=== PATIENT | male | born 1995 | race Caucasian/White ===

== ENCOUNTER 2017-04-04 11:10 | Emergency (ER) | payer OTHER ==
[~2017-04-04] VITALS: Ht 172.7 cm; Wt 58.2 kg
[~2017-04-04 11:10] MED LIST: RIS1
[2017-04-04 11:22] VITALS: Ht 172.7 cm; Wt 58.2 kg
[2017-04-04] MEDS ORDERED: SULF1TAB31 PO (12:02)
[2017-04-04] MEDS ORDERED: CEPH-443 PO (12:02)
--- NOTE | 2017-04-04 12:07 | ERD ---
ER Documentation Chief Complaint Chief Complaint Pt with R face abcess with puss/bood tinged drainage noted. Tachy HPI 21-year-old male with history of autism and mutism presents with a chief complaints of abscess on the right cheek. Abscess started draining this morning. Denies fever, nausea, vomiting, chills, altered mental status. Has not taken any medications to relieve symptoms. Vaccination status up-to-date. No recent travel. Patient has no other complaints and describes no other associated manifestations. Nursing notes have been reviewed and are consistent with history given. ROS All systems reviewed and are negative except as per history of present illness. Medications Home Meds Active Scripts Cephalexin* (Keflex*) 500 Mg Capsule, 500 MG PO QID for 5 Days, CAP Prov:MENG FREGOSO PA-C 04/04/17 Sulfamethoxazole/Trimethoprim* (Bactrim Ds* Tablet) 1 Each Tablet, 1 TAB PO BID , #14 TAB Prov:MENG FREGOSO PA-C 04/04/17 Reported Medications Risperidone* (Risperdal*) 1 Mg Tablet 09/19/10 Allergies Allergies: Coded Allergies: No Known Drug Allergies (Verified Allergy, Mild, 09/19/10) PMhx/Soc History of Surgery: No Anesthesia Reaction: No Hx Neurological Disorder: No Hx Respiratory Disorders: No Hx Cardiac Disorders: No Hx Psychiatric Problems: Yes (AUTISM) Hx Miscellaneous Medical Probl: No Hx Alcohol Use: No Hx Substance Use: No Hx Tobacco Use: No Physical Exam Vitals Vital Signs Date Time Temp Pulse Resp B/P Pulse Ox O2 Delivery O2 Flow Rate FiO2 04/04/17 11:22 99.1 118 18 138/75 98 Physical Exam Const: Healthy-appearing. Well-nourished. Well-developed. No acute distress. Skin: A 4 cm abscess on right cheek along the hairline. Tender to palpation. Mildly indurated. Nonfluctuant. Purulent material visualized on the mccrary. Head: Normocephalic. As noted in skin exam. Eyes: Non-injected; No scleral erythema, or discharge. EOMI and EYD bilaterally. Ears: Normal external ears. No pain with movement of the external auricle Oral: No oral edema visualized. Mucous membranes moist and pink. Neck: No cervical lymphadenopathy, or masses. Trachea midline. Supple ~ No meningismus. Pulm: Good air movement in upper and lower respiratory tracts. No dyspnea, stridor, tripoding or drooling. Clear to auscultation bilaterally. Cardio: Regular rate and rhythm. No JVD grossly observed. Radial and posterior tibial pulses 2+ bilaterally. No cyanosis. Capillary refill less than 2 seconds. s. MS: Normal motor strength, normal tone with gross examination. Back: No midline or flank tenderness. Neur: Neurovascularly intact bilaterally. Awake, alert and oriented x3. Procedures/MDM 21-year-old male presents with a chief complaint of abscess on the right cheek. History of autism mutism. Abscess is draining. No indication for incision and drainage. Antibiotics prescribed. Have recommended reevaluation in 2 days. I have spoke with the patient regarding their condition and future management. They have verbally responded that they understand their status and treatment plan. The patients vitals are stable, and their current condition is appropriate for discharge. The patient will be given discharge instructions with return precautions. Departure Diagnosis: Primary Impression: Acute abscess Condition: Stable Patient Instructions: Abscess, Antiobiotic Treatment Only Referrals: CHERELLE MEDINA (PCP) Additional Instructions: Follow up with your PCP within the next 1-3 days for a more thorough evaluation and a possible referral to a specialist. Return the the emergency department immediately if symptoms worsen or change. If you have any questions regarding medications, ask your pharmacist or us before you leave. If any adverse reactions occur while taking your medications, discontinue the treatment and return to the emergency department immediately. Take your medications as directed, and complete the entire course of treatment. MENG FREGOSO PA-C Apr 04, 2017 12:07
== END 2017-04-04 12:17 | disposition home or self-care (01) ==
LOC: FTE 11:10
DX: L02.01 Cutaneous abscess of face (principal); F84.0 Autistic disorder
CPT/HCPCS: 99284